=== PATIENT | female | born 1985 | race Caucasian/White ===

== ENCOUNTER 2016-11-05 11:13 | Emergency (ER) | payer MEDICAID, OTHER ==
[~2016-11-05] VITALS: Ht 177.8 cm; Wt 90.4 kg
[2016-11-05 11:17] VITALS: BP 129/84; PULSE 88; RESP 14; O2SAT 99
[2016-11-05] MEDS ORDERED: NORE1TAB63 PO (11:25)
[2016-11-05] MEDS ORDERED: IBUP400T22 PO (11:25)
--- NOTE | 2016-11-05 12:24 | ED.REPORT ---
HPI-Extremity Problem Lower Date of Service Nov 05, 2016 ED Provider: Colin Coats DO This is a 31-year-old female who presents to the ED for lower extremity discoloration. Patient states this morning after showering, while she was standing for about 20 minutes getting ready, her legs looked purple. She mentions this lasted about 5 minutes until she lied down and the discoloration went away. She notes associated tingling coming from her back to her left lateral thigh as well as from her back wrapping around her anterior thigh to medial calf. She does note history of lumbar injury in 2013 with sciatica. Otherwise no known recent trauma. She does note she started Bactrim one day ago for UTI, which has helped with her urinary frequency, urgency and dysuria. She mentions of having some swelling in her left foot without any tenderness otherwise no other swelling in her legs. She did have very mild abdominal pain due to anxiety which was momentary. Otherwise denies any chest pain, shortness of breath, nausea, vomiting and any numbness around her lower back and thighs. She also denies incontinence. She has not had anything like this before. Nursing Notes Stated Complaint: LEGS TURNING PURPLE Chief Complaint: General Complaint Nursing Notes Reviewed: Yes Allergies: Coded Allergies: No Known Allergies (Unverified , 11/05/16) Scheduled PRN Ibuprofen (Ibuprofen) 400 Mg Tablet 400 MG PO QID PRN PRN For Pain Miscellaneous Medications Norethindrone A-E Estradiol (Microgestin) 1 Each Tablet 1 EACH PO General Time Seen by MD: 11:50 Chief Complaint Other (leg discoloration) Hx Obtained From: Patient Past Medical History Past Medical History None Past Surgical History Reports: Cholecystectomy Smoking History Former Smoker (10 pack years) Social History Alcohol Use: "Social" Drug Use: THC (smokes marijuana twice daily) Review of Systems Basic Review of Systems Eyes: Vision NL Respiratory: No shortness of breath Cardiovascular: No chest pain Constitutional: Denies: Chills, Fatigue, Fever Musculoskeletal: Reports: Lumbar pain, Denies: Extremity swelling Neurologic: Denies: Focal weakness, Headache, Numbness, Problem walking Complete sys rev & neg: except as marked. GI: Reports: Abdominal pain (momentary) Female: Denies: Incontinence Physical Exam Initial Vital Signs Vital Signs (First) Date Time Temp Pulse Resp B/P Pulse Ox O2 Delivery O2 Flow Rate FiO2 11/05/16 11:17 36.7 88 14 129/84 99 Initial VS: Reviewed General/Constitutional: Well-developed, Well-nourished Head / Eyes: Atraumatic, Normocephalic Respiratory: Breath sounds normal, Clear to auscultation, No respiratory distress Cardiovascular: Regular rate & rhythm, Heart sounds normal, Intact distal pulses Abdomen / GI: Soft, Non-tender Back: No CVA tenderness Upper Extremities: Vascular intact, Neuro intact, No swelling, No tenderness Skin: Warm, Dry Neurologic: Alert, Oriented Psychiatric: Mood/affect normal, Behavior normal Lower Extremity / Pelvis / MS: Atraumatic Visible bruise right anterior thigh with green discoloration. Patient's lower extremities without swelling, nontender, fine sensation intact, motor strength 5 out of 5 bilaterally. Back: Atraumatic, Inspection NL Additional Notes: Midline tenderness in lumbar region. No numbness noted in lower back and pelvic region. Re-Eval/Medical Decision Med Decision/Clinical Course This is a 31-year-old female who presents for lower extremity discoloration. Initial concerns included DVT, PAD and methemoglobinemia. Patient history and physical exam inconsistent for DVT and peripheral arterial disease. Patient did have recent use with Bactrim, so ABG was done to assess methemoglobin and was found to be unremarkable. The reported purple legs was not seen while patient was here and she mentions it resolved with sitting down. There does not seem to be an emergent cause for her presenting symptoms. She should follow up with her primary care physician for further evaluation. Discharge & Departure Impression: Primary Impression: Discoloration of skin of lower leg Disposition: Home Patient Status: Stable Discharge Condition All VS Reviewed: Yes Condition: Stable Additional Instructions: In the emergency department, you were evaluated for a condition called methemoglobinemia which can sometimes occur very rarely with Bactrim use. Findings were negative for this. Per examination and symptoms, there did not seem to be any evidence for blood clots in your legs. It is recommended you follow up with your primary care physician within a week. If you start to notice swelling and tenderness of the calves, return to the emergency department. Attending Statement The patient was seen and examined together with Dr. Joshi on 11/05/16 and I agree with the history, exam and plan as outlined in the note above. Mani Joshi DO Nov 05, 2016 11:56 Colin Coats DO Nov 05, 2016 13:57
--- NOTE | 2016-11-05 12:26 | ABG ---
DateTimeAnalyzed 12:19:00 -_ pH ____7.417 - 7.350 7.450 pCO2 ___32.1__ -mmHg 35.0 45.0 pO2 102 -mmHg 69.0 116 HCO3- ___20.3__ -mmol/L 22.0 26.0 ABE ___-2.9__ -mmol/L -2.0 2.0 tHb ___12.4__ -g/dL 12.0 18.0 O2Hb ___95.9__ -% COHb ____0.9__ -% 0.0 1.5 MetHb ____0.9__ -% 0.4 1.5 sO2 ___97.7__ -% FIO2 ___21.0__ -% Drawn By rs - Date/Time Notified____ 12:26:00 -_ Notified By rs - Notified Whom __Okelley - B 759 -mmHg tO2 ___16.9__ -Vol%
== END 2016-11-05 13:30 | disposition home or self-care (01) ==
LOC: SED 11:13
DX: L81.9 Disorder of pigmentation, unspecified (principal); Z87.891 Personal history of nicotine dependence; Z90.49 Acquired absence of other specified parts of digestive tract